=== PATIENT | male | born 1985 | race Caucasian/White ===

== ENCOUNTER → 2016-11-21 | Outpatient (CLI) | payer BC ==
--- NOTE | 2016-11-21 16:10 | Diagnostic Imaging Report ---
Indication: COUGH Technique: PA and lateral views of the chest. Findings: Comparison: None The bones and extra pulmonary soft tissues, cardiomediastinal silhouette, pulmonary vasculature and parenchyma, and pleural surfaces are unremarkable. IMPRESSION: Negative PA and lateral chest radiographs
== END | disposition home or self-care (01) ==
LOC: RAD 14:48
DX: R07.9 Chest pain, unspecified (principal)
CPT/HCPCS: 71020